=== PATIENT | male | born 1950 | race Two or more races ===

== ENCOUNTER → 2022-06-08 | Day surgery (SDC) | payer OTHER ==
[~2022-06-08] MED LIST: ASPIRIN PO; OR PHACO EYE KIT ONE; PREOP PHACO EYE KIT ONE; VITAMIN C1000 MG PO
[2022-06-08 13:50] VITALS: BP 119/82
== END | disposition home or self-care (01) ==
LOC: OR 09:40
PROVIDERS: ATTEND Ophthalmology
DX: H25.12 Age-related nuclear cataract, left eye (principal); Z01.810 Encounter for preprocedural cardiovascular examination; Z01.812 Encounter for preprocedural laboratory examination; Z20.822 Contact with and (suspected) exposure to COVID-19; Z79.82 Long term (current) use of aspirin
CPT/HCPCS: 0223U; 36415; 93005; V2632

== ENCOUNTER → 2022-06-22 | Day surgery (SDC) | payer OTHER ==
[~2022-06-22] MED LIST changes: +FENTANYL CITRATE/PF 100MCG/2 ML INJ ONE; +MIDAZOLAM HCL 2 MG/2 ML VIAL ONE
[2022-06-22 13:00] VITALS: BP 104/71
== END | disposition home or self-care (01) ==
LOC: OR 09:19
PROVIDERS: ATTEND Ophthalmology
DX: H25.11 Age-related nuclear cataract, right eye (principal); Z20.822 Contact with and (suspected) exposure to COVID-19; Z79.82 Long term (current) use of aspirin
CPT/HCPCS: 0223U; 36415; J2250; J3010; V2632